=== PATIENT | female | born 1995 | race Two or more races ===

== ENCOUNTER 2017-03-12 14:44 | Emergency (ER) | payer BC, MEDICAID, OTHER ==
[~2017-03-12] VITALS: Ht 157.5 cm; Wt 52.5 kg
[2017-03-12] MEDS ORDERED: SODIUM CHLORIDE 0.9% 1,000 ML IV ONE (15:05)
[2017-03-12] MEDS ORDERED: METOCLOPRAMIDE 5 MG/ML, 2ML ONE (15:25)
[2017-03-12] MEDS ORDERED: DIPHENHYDRAMINE 50 MG/ML, 1ML ONE (15:25)
[2017-03-12] MEDS ORDERED: SODIUM CHLORIDE 0.9% 1,000ML IVBOLUS ONE (15:30)
[2017-03-12] MEDS ORDERED: DIPHENHYDRAMINE 50 MG/ML, 1ML IVPush ONE (15:30)
[2017-03-12] MEDS ORDERED: METOCLOPRAMIDE 5 MG/ML, 2ML IVPush ONE (15:30)
[2017-03-12] MEDS ORDERED: PLEASE ENTER ALLERGIES MC SCH ×2 (15:30)
[2017-03-12 15:41] LABS: HEMOGLOBIN 13.2 g/dL (11.7-16.4); WHITE BLOOD COUNT 5.5 x10^3/uL (3.4-10)
[2017-03-12 15:43] LABS: BLOOD UREA NITROGEN 12 mg/dL (7-18)
[2017-03-12] MEDS ORDERED: KETOROLAC 30 MG/1 ML ONE (16:55)
[2017-03-12] MEDS ORDERED: KETOROLAC 30 MG/1 ML IVPush ONE (17:00)
[2017-03-12 18:59] VITALS: BP 100/56
== END 2017-03-12 19:06 | disposition home or self-care (01) ==
LOC: ED 15:26
DX: G43.001 Migraine without aura, not intractable, with status migrainosus (principal)
CPT/HCPCS: 36415; 70450; 80048; 82040; 84703; 85025; 93005; 96361; 96374; 96375; 99285; J1200; J1885; J2765; J7030

== ENCOUNTER 2017-03-27 19:37 | Emergency (ER) | payer OTHER ==
[~2017-03-27] VITALS: Ht 157.5 cm; Wt 48.4 kg
[2017-03-27] MEDS ORDERED: MAALOX/HYOSCYAMINE/LIDOCAINE 45 ML BTL ONE (20:15)
[2017-03-27] MEDS ORDERED: MAALOX/HYOSCYAMINE/LIDOCAINE 45 ML BTL PO ONE (20:30)
[2017-03-27 20:44] LABS: HEMATOCRIT 41.3 % (34.6-47.8); HEMOGLOBIN 13.4 g/dL (11.7-16.4); WHITE BLOOD COUNT 8.2 x10^3/uL (3.4-10)
[2017-03-27 20:55] LABS: ASPARTATE AMINO TRANSFERASE 8 U/L (15-37); BLOOD UREA NITROGEN 9 mg/dL (7-18)
[2017-03-27 21:40] VITALS: BP 99/64
== END 2017-03-27 22:21 | disposition home or self-care (01) ==
LOC: ED 21:29
DX: R07.2 Precordial pain (principal)
CPT/HCPCS: 36415; 71010; 80053; 83690; 84703; 85025; 85379; 93005; 99285